=== PATIENT | female | born 1975 | race Caucasian/White ===

== ENCOUNTER 2017-04-13 12:24 | Outpatient (CLI) | END 2017-04-13 12:25 | disposition home or self-care (01) | LOC: CAR 12:24 | PROVIDERS: ATTEND Physician Assistant Medical | DX: I10 Essential (primary) hypertension (principal) | CPT/HCPCS: 93005; 93010 ==

== ENCOUNTER 2018-04-10 12:46 | Outpatient (CLI) | END 2018-04-10 12:47 | disposition home or self-care (01) | LOC: CAR 12:46 | PROVIDERS: ATTEND Nurse Practitioner Family | DX: R53.83 Other fatigue (principal); I49.9 Cardiac arrhythmia, unspecified; R14.0 Abdominal distension (gaseous); K90.49 Malabsorption due to intolerance, not elsewhere classified; R11.0 Nausea | CPT/HCPCS: 36415; 80053; 80061; 83516; 84443; 85025; 86677; 93005; 93010 ==

== ENCOUNTER 2018-04-24 06:23 | Outpatient (CLI) ==
--- NOTE | 2018-04-26 12:25 | ECHO2D ---
Date of Exam: 04/24/18 Ordering Physician: CIRILO BANDA APRN Room #: OP Reason for Echo: CARDIAC ARRHYTHMIA M-Mode Normal Adult Results LV Dimensions Normal Adult Results AoV Opening excursions >1.6 >1.6 LVEDD-base- 3.5-5.8 4.0 Ao root dimensions 2.0-3.7 3.1 LVESD-base- 3.1-4.6 L. Atrium dimensions 1.9-3.8 3.4 Post. Wall thickness 0.8-1.1 0.9 IV septum (thickness) 0.7-1.2 0.9 Post. Wall excursion 0.72-1.3 NORMAL Septal motion NORMAL Systolic motion R. Ventricular cavity 1.5-2.0 NORMAL LVEF 60% 59% Paradoxical septal wall motion NORMAL 2-D : MITRAL VALVE PROLAPSE NOTED LEFT PARASTERNAL LONG AXIS AND APICAL FOUR CHAMBER VIEW--NORMAL LEFT VENTRICULAR CONTRACTILITY, NO EFFUSION, NO THROMBUS, NORMAL LEFT ATRIAL AND LEFT VENTRICLE SIZE M-MODE: MV: LATE SYSTOLIC MITRAL VALVE PROLAPSE AV: NORMAL TV: NORMAL PV: CHAMBER SIZE: NORMAL WALL MOTION: NORMAL PERICARDIUM: NORMAL INTERPRETATION: 1. MITRAL VALVE PROLAPSE LATE SYSTOLIC 2. NORMAL LEFT VENTRICULAR CONTRACTILITY 3. NORMAL LEFT ATRIAL AND LEFT VENTRICLE CAVITY SIZE MTDD
== END 2018-04-24 06:24 | disposition home or self-care (01) ==
LOC: CAR 06:23
PROVIDERS: ATTEND Nurse Practitioner Family
DX: I49.9 Cardiac arrhythmia, unspecified (principal)

== ENCOUNTER 2018-04-25 06:54 | Outpatient (CLI) ==
--- NOTE | 2018-04-25 08:24 | STRESS ---
Date of Test: [] Ordering Physician: [] Occupation:[] Reason for Exam: [] Smoking History: [] Height: [] Weight: [] Current Medications: [] Target Heart Rate: [] Resting EKG: [] S-T SEGMENT STAGE MPH/GRADE HEART RATE BPM BLOOD PRESSURE MMHG RHYTHM +/- ELEVATION DEPRESSION SYMPTOMS,COMMENTS AT REST [] [] [] [] [] [] [] 1 1.7/10% [] [] [] [] [] [] [] 2 2.5/12% [] [] [] [] [] [] [] 3 3.4/14% [] [] [] [] [] [] [] 4 4.2/16% [] [] [] [] [] [] [] 5 5.0/18% [] [] [] [] [] [] [] Immediately After [] [] [] [] [] [] [] Minutes Post Exercise [] [] [] [] [] [] [] [] Minutes Post Exercise [] [] [] [] [] [] [] [] DURATION OF EXERCISE: [] MAXIMUM HEART RATE REACHED: [] REASON FOR TERMINATION: [] []OXYGEN SATURATION WITH EXERCISE METS [] INTERPRETATION: 1: [] 2: [] 3: [] 4. [] MTDD
--- NOTE | 2018-04-25 08:33 | STRESSECHO ---
Date of Test: 04/25/18 Ordering Physician: CIRILO BANDA APRN Occupation: DISABLED Reason for Exam: CARDIAC ARRHYTHMIA Smoking History: QUIT 08/21 Height: 62" Weight: 109 LBS Current Medications: NO PRESCRIPTION MEDICATIONS Resting EKG: SINUS RHYTHM/ NO ACUTE CHANGES Target Heart Rate: 150/177 S-T SEGMENT STAGE MPH/GRADE HEART RATE BPM BLOOD PRESSURE MMHG RHYTHM +/- ELEVATION DEPRESSION SYMPTOMS AT REST 70 BPM 120/84 MMHG SR X NONE 1 1.7/10% 2 2.5/12% 3 3.4/14% 4 4.2/16% 5 5.0/18% Immediately After 173 BPM 151/90 MMHG SR X SOB, TACHYARRHYTHMIA Minutes Post Exercise 2:00 90 BPM SR X NONE Minutes Post Exercise 5:00 70 BPM 140/90 MMHG SR X NONE DURATION OF EXERCISE: 1:52 MAXIMUM HEART RATE REACHED: 173 BPM REASON FOR TERMINATION: SOB, TACHYARRHYTHMIA 98% OXYGEN SATURATION ON ROOM AIR WITH EXERCISE INTERPRETATION: 1. NO EVIDENCE OF ISCHEMIA BY ST-T WAVE 2. NO CHEST PAIN OR DISCOMFORT 3. FEW ISOLATED PVC'S WITH EXERCISE 4. SVT NOTED AT THE HEIGHT OF EXERCISE FOR A MINUTE OR SO 5. POOR EXERCISE TOLERANCE NORMAL LEFT VENTRICULAR CONTRACTILITY---RESTING AND POST EXERCISE MTDD
--- NOTE | 2018-04-25 09:10 | ECHOSTRESS ---
Date of Exam: 04/25/18 Ordering Physician: CIRILO BANDA APRN Reason for Echo: CARDIAC ARRHYTHMIA M-Mode Normal Adult Results LV Dimensions Normal Adult Results AoV Opening excursions >1.6 LVEDD-base- 3.5-5.8 Ao root dimensions 2.0-3.7 LVESD-base- 3.1-4.6 L. Atrium dimensions 1.9-3.8 Post. Wall thickness 0.8-1.1 IV septum (thickness) 0.7-1.2 Post. Wall excursion 0.72-1.3 Septal motion Systolic motion R. Ventricular cavity 1.5-2.0 LVEF 60% Paradoxical septal wall motion 2-D: NORMAL LEFT VENTRICULAR CONTRACTILITY--RESTING AND POST EXERCISE M-MODE: MV: AV: TV: PV: CHAMBER SIZE: WALL MOTION: NORMAL LEFT VENTRICULAR CONTRACTILITY--RESTING AND POST EXERCISE PERICARDIUM: INTERPRETATION: 1.NORMAL LEFT VENTRICULAR CONTRACTILITY--RESTING AND POST EXERCISE MTDD
== END 2018-04-25 06:55 | disposition home or self-care (01) ==
LOC: CAR 06:54
PROVIDERS: ATTEND Nurse Practitioner Family
DX: I49.9 Cardiac arrhythmia, unspecified (principal)

== ENCOUNTER 2018-05-08 12:45 | Outpatient (CLI) | END 2018-05-08 12:46 | disposition home or self-care (01) | LOC: RHC-LAB 12:45 | PROVIDERS: ATTEND Nurse Practitioner Family | DX: R53.83 Other fatigue (principal) | CPT/HCPCS: 36415; 82607 ==

== ENCOUNTER 2018-10-24 15:07 | Outpatient (CLI) ==
--- NOTE | 2018-10-24 15:59 | DI ---
EXAM: Right hip two-view HISTORY: Right hip pain COMPARISON: None FINDINGS: The bones are normal. The hip joint is normal. No focal soft tissue abnormality. IMPERSSION: Normal examination.
--- NOTE | 2018-10-24 15:59 | DI ---
EXAM: Pelvis one-view HISTORY: Right hip pain COMPARISON: None FINDINGS: Sacroiliac joints intact. Sacral arcuate lines intact. Hip joints appear normal. No frac ture or dislocation. No focal soft tissue abnormality. IMPERSSION: Normal examination.
--- NOTE | 2018-10-24 16:00 | DI ---
EXAM: Right femur, two-view HISTORY: Right hip pain COMPARISON: None FINDINGS: The bones are normal. Alignment is normal. No focal soft tissue abnormality. IMPERSSION: Normal examination.
== END 2018-10-24 15:08 | disposition home or self-care (01) ==
LOC: RAD 15:07
PROVIDERS: ATTEND Nurse Practitioner Family
DX: M25.551 Pain in right hip (principal)

== ENCOUNTER 2019-01-05 16:07 | Emergency (ER) ==
[2019-01-05 16:10] VITALS: BP 171/93; TEMP 97.1; BMI 22.8
--- NOTE | 2019-01-05 17:35 | ED.PDOC ---
General ED Provider: Dr. GRIS CRONIN Chief Complaint: Vaginal Bleeding Stated Complaint: 43 years old female on her menstural cycle day 3 . Pt reported that her period is heavier than usual and she has used about 4 pads on the day of presentation. pt also reported of passing of a large clot just prior to arrival. In addition she c/o lower abdominal pain. negative trauma Time Seen by Physician: 16:09 (RN AT BEDSIDE AT ALL TIMES) Mode of Arrival: Walk-In Information Source: Patient Exam Limitations: No limitations Primary Care Provider: LEON MOSS Nursing and Triage Documentation Reviewed and Agree: Yes Does patient meet sepsis criteria?: No System Inflammatory Response Syndrome: Not Applicable Sepsis Protocol: For patient's 13 years and over: Temp is 96.8 and below OR 101 and greater Pulse >90 BPM Resp >20/minute Acutely Altered Mental Status Are patient's symptoms suggestive of a new infection, such as: -Pneumonia -Skin, Soft Tissue -Endocarditis -UTI -Bone, Joint Infection -Implantable Device -Acute Abdominal Infection -Wound Infection -Meningitis -Blood Stream Catheter Infection -Unknown Complaint Exam - UTI Female Complaint/Exam : 5 Para: 4 Hx Total # of Abortions (Spontaneous & Elective): 1 - Complaint/Exam Patient Complains of: Reports: Pain (VAGINAL AND LOWER DISCOMFOR X 3 DAYS ) Onset/Duration: 3 DAYS OF HEAVIER THAN USUAL BLEEDING Symptoms Are: Resolved Timing: Intermittent Initial Severity: Moderate Current Severity: None Location of Pain: Reports: Suprapubic Character: Reports: Constant pressure Aggravating: Reports: Movement (STANDING). Denies: [place], Coughing, Urination Alleviating: Reports: None Associated Signs and Symptoms: Reports: Vaginal bleeding. Denies: Diaphoresis, Back pain, Fever, Hematuria, Dysuria, Constipation, Blood in stool, Rectal pain , Appetite change, Nausea, Vomiting, Decreased urine output, Increased urine frequency, Increased thirst, Decreased activity, Lethargy, Abdominal Pain, Bubble bath use, Vaginal discharge, Genital swelling, Genital blisters, Retained foreign body Ectopic Risk Factors: Reports: Maternal age >30 Ovarian Torsion Risk Factors: Reports: None Surgical Obstruction Risk Factors: Reports: None RH Status: Unknown Abdominal Findings: Present: None Vulva Exam: Present: Normal Findings Differential Diagnoses: Other (UTERINE, POLYS, FIBROIDS ENDOMETRIAL HYPERPLASIA , CANCER ) Review of Systems - Review Of Systems Constitutional: Reports: No symptoms Eyes: Reports: No symptoms Ears, Nose, Mouth, Throat: Reports: No symptoms Respiratory: Reports: No symptoms Cardiac: Reports: No symptoms GI: Reports: Abdominal pain : Reports: Other (vaginal bleeding) Musculoskeletal: Reports: No symptoms Skin: Reports: No symptoms Neurological: Reports: No symptoms Endocrine: Reports: No symptoms Hematologic/Lymphatic: Reports: No symptoms All Other Systems: Reviewed and Negative Past Medical History - Past Medical History Previously Healthy: Yes Endocrine: Reports: None Cardiovascular: Reports: None Respiratory: Reports: None Hematological: Reports: None Gastrointestinal: Reports: None Genitourinary: Reports: None Neuro/Psych: Reports: None Musculoskeletal: Reports: None Cancer: Reports: None Last Menstrual Period: NOW - Surgical History General Surgical History: Reports: None - Family History Family History: Reports: None - Social History Smoking Status: Never smoker Hx Substance Use: No Alcohol Screening: None Physical Exam - Physical Exam Appearance: Well-appearing, No pain distress, Well-nourished Eyes: ZEESHAN, EOMI, Conjunctiva clear ENT: Ears normal, Nose normal, Oropharynx normal Respiratory: Airway patent, Breath sounds clear, Breath sounds equal, Respirations nonlabored Cardiovascular: RRR, Pulses normal, No rub, No murmur GI/: Soft, Nontender, No masses, Bowel sounds normal, No Organomegaly Musculoskeletal: Normal strength, ROM intact, No edema, No calf tenderness Skin: Warm, Dry, Normal color Neurological: Sensation intact, Motor intact, Reflexes intact, Cranial nerves intact, Alert, Oriented Psychiatric: Affect appropriate, Mood appropriate Re-Evaluation - Re-Evaluation Time of Re-Evaluation: 17:00 Status: Improved Vital Signs Stable: Yes Pain Level: 0 Appearance: NAD Lungs: Clear Skin: Warm and Dry Neuro: Alert and Oriented X3 CV: RRR - Re-Evaluation Time of Re-Evaluation: 17:51 (examine with serena and no bleeding noted ) Status: Improved Vital Signs Stable: Yes Pain Level: 0 Appearance: NAD Skin: Warm and Dry Neuro: Alert and Oriented X3 CV: RRR Critical Care Note - Critical Care Note Total Time (mins): 0 Course - Course Hematology/Chemistry: 01/05/19 16:35 Orders, Labs, Meds: Lab Review 01/05/19 16:35 WBC 7.64 RBC 3.52 L Hgb 11.4 L Hct 31.9 L MCV 90.6 MCH 32.4 H MCHC 35.7 H RDW Coeff of Munir 12.5 Plt Count 238 Immature Gran % (Auto) 0.3 Neut % (Auto) 65.7 Lymph % (Auto) 26.3 [place] % (Auto) 6.5 Eos % (Auto) 0.9 Baso % (Auto) 0.3 Immature Gran # (Auto) 0.0 Neut # (Auto) 5.0 Lymph # (Auto) 2.0 [place] # (Auto) 0.5 Eos # (Auto) 0.1 Baso # (Auto) 0.0 Orders Category Date Time Status CBC W/ AUTO DIFF Stat LAB 01/05/19 16:35 Completed COMPREHENSIVE METABOLIC PANEL Stat LAB 01/05/19 16:35 Received PARTIAL THROMBOPLASTIN TIME Stat LAB 01/05/19 16:35 Received PT WITH INR Stat LAB 01/05/19 16:35 Received SERUM Stat LAB 01/05/19 16:[address] ABDOMEN/PELVIS WO CONTRAST Stat RADS 01/05/19 16:30 Ordered ULTRASOUND PELVIS ALVAREZ VAGINAL/NONOB [U/S PELVIS ALVAREZ RADS 01/05/19 16:33 Ordered VAGINAL/NON OB] Stat Vital Signs: Temp Pulse Resp BP Pulse Ox 01/05/19 16:07 97.1 F L 127 H 20 171/93 H 100 Departure - Departure Time of Disposition: 19:00 (with serena at [facility] ultra sound report discussed pt understands that this may be a cancer related issue and she must follow up no vaginal bleeding while at [facility]) Disposition: HOME SELF-CARE Discharge Problem: Bleeding from vagina Anemia Qualifiers: Anemia type: unspecified type Qualified Code(s): D64.9 - Anemia, unspecified Instructions: Dysfunctional Uterine Bleeding (ED), Anemia (ED) Condition: Good Pt referred to PMD for follow-up: Yes IPMP verified?: No Additional Instructions: Please call your Family Physician as soon as possible to schedule a follow-up appointment.THE LINING OF THE UTERUS IS THICKED . THIS LAYER IS CALLED ENDOMETRIUM . THICKENED LAYER CAN MEAN CANCER , INFECTION . YOU MUST SEE A PAN DEVULCANIZER HELPER DOCTOR AND FAMILY DOCTOR SSON POSSIBLE. Allergies/Adverse Reactions: Allergies lorazepam [From Ativan] Allergy (Severe, Verified 01/05/19 16:13) diskonesai Penicillins Allergy (Severe, Verified 01/05/19 16:13) Hives Patient will notify drugstore vancomycin Allergy (Severe, Verified 01/05/19 16:13) Hives Home Medications: Ambulatory Orders Acetaminophen [Tylenol] 325 mg PO PRN 04/10/18 Disposition Discussed With: Patient, Family
--- NOTE | 2019-01-05 17:37 | US ---
EXAM: Pelvic ultrasound transvaginal HISTORY: Bleeding COMPARISON: None. FINDINGS: Real time evaluation of the pelvic structures was performed using transvaginal approach to facilitate improved anatomic detail.. Uterus measures 8.7 x 5.0 x 5.7 cm and is retroverted. Endom etrial canal echo measures 2.2 cm and contain a hypoechoic mass/polyp measuring 1.1 x 0.9 x 1.4 cm.. Fluid is seen in the cul-de-sac. The left ovary measures 3.6 x 2.0 x 1.7 cm and is a complex area m easuring 1.6 x 1.1 cm. Right ovary was not visualized. IMPRESSION: Retroverted uterus which demonstrates a prominent endometrial canal echo and contain mass/polyp as de scribed Free fluid in the cul-de-sac. Complex mass left ovary which merits follow-up. Right ovary was not visualized
--- NOTE | 2019-01-05 18:10 | CT ---
EXAM: Noncontrast CT of the abdomen and pelvis. HISTORY: Vaginal bleeding. COMPARISON: Pelvic ultrasound dated 7 x 19. TECHNIQUE: Contiguous axial images at 3 mm intervals were obtained from lung bases through the pelvi s. No contrast was given. Coronal reformats were reviewed. FINDINGS: The study is limited without contrast. CHEST: LUNG BASES: The lung bases show no lobar consolidation or effusion. HEART: The heart size is within normal limits. ABDOMEN: Evaluation of the soft tissue organs is limited without contrast. LIVER: Noncontrast images of the liver show no solid mass lesion or intrahepatic ductal dilatation. BILIARY: The gallbladder is normally distended. No gallstones are noted. No pericholecystic fluid or inflammation. The common bile duct is normal. SPLEEN: The spleen is unremarkable. PANCREAS: The pancreas shows no mass lesion or peripancreatic inflammation. ADRENAL GLANDS: The adrenal glands are normal. RENAL: The kidneys show no hydronephrosis or nephrolithiasis. There are no obstructing ureteral st ones. No solid mass lesions are identified. AORTA: calcifications are seen. No aneurysm is identified. RETROPERITONEUM: There is no retroperitoneal or mesenteric adenopathy. BOWEL: The bowel is unopacified. There is no obstruction or inflammatory change. There is no free fluid or free air. No significant inflammatory changes are seen. The appendix is not identified on the study. There is no fluid or inflammation in the right lower quadrant. Mild diverticulosis is seen without evidence of acute diverticulitis. PELVIS: There is a trace of free fluid the pelvis. BLADDER: The bladder is well distended and appears normal. GENITOURINARY STRUCTURES: The uterus and ovaries are unremarkable. Please refer to ultrasound pelv is from same date. OSSEOUS STRUCTURES: The osseous structures are normal for age. IMPRESSION 1. Limited study without contrast.No acute intra-abdominal abnormality. No obstructing ureteral sto asmita. 2. The appendix is normal. 3. Trace amount of free fluid the pelvis. Please refer to pelvic ultrasound for further evaluation of the uterus.
== END 2019-01-05 18:31 | disposition home or self-care (01) ==
LOC: ED 16:07
DX: N93.9 Abnormal uterine and vaginal bleeding, unspecified (principal); D64.9 Anemia, unspecified; R93.89 Abnormal findings on diagnostic imaging of other specified body structures
CPT/HCPCS: 36415; 80053; 84703; 85025; 85610; 85730; 99283